=== PATIENT | female | born 2000 | race Caucasian/White ===

== ENCOUNTER 2022-12-14 10:08 | Inpatient (IN) | payer OTHER ==
[~2022-12-14] VITALS: Ht 165 cm; Wt 65.3 kg
[2022-12-14] MEDS ORDERED: METHYLERGONOVINE MALEATE 0.2 MG/ML IM PRN (11:45)
[2022-12-14] MEDS ORDERED: LIDOCAINE HCL 1% 20ML VIAL (Pyxis) INJ INFIL SCH (11:45)
[2022-12-14] MEDS ORDERED: MEPERIDINE HCL/PF 25MG/ML CPJ IM PRN (13:30)
[2022-12-14] MEDS: LACTATED RINGERS 1,000 ML IV SCH ×6 (13:49→21:49)
[2022-12-14] MEDS: MEPERIDINE HCL/PF 25MG/ML CPJ IV PRN ×6 (13:51→21:51)
[2022-12-14 14:09] LABS: BASOPHILS % 0.4 % (0.0-2.0); EOSINOPHILS % 0.2 % (0.0-5.0); HEMATOCRIT. 34.8 % (36.0-48.0); HEMOGLOBIN. 12.1 g/dL (12.0-16.0); LYMPHOCYTES % 20.7 % (20.0-50.0); MEAN CORPUSCULAR HEMOGLOBIN 29.6 pg (28.0-32.0); MEAN CORPUSCULAR VOLUME 85.2 fL (81.0-99.0); MEAN PLATELET VOLUME 10.9 fl (7.4-10.4); MONOCYTES % 6.8 % (2.0-8.0); NEUTROPHILS % 71.9 % (40.0-76.0); PLATELET 206 x1000/uL (130-400); RED BLOOD CELL COUNT 4.08 mill/uL (4.2-5.4)
[2022-12-14 14:58] LABS: HEPATITIS B SURFACE ANTIGEN NEGATIVE
[2022-12-14 15:28] LABS: CLARITY URINE CLOUDY (CLEAR); COLOR URINE YELLOW (YELLOW); KETONES URINE NEGATIVE (NEGATIVE); LEUKOCYTE ESTERASE URINE NEGATIVE (NEGATIVE); NITRITE URINE NEGATIVE (NEGATIVE); OCCULT BLOOD URINE NEGATIVE (NEGATIVE); PROTEIN URINE NEGATIVE (NEGATIVE); SPECIFIC GRAVITY URINE 1.014 (1.005-1.030)
[2022-12-14 15:44] LABS: *AMPHETAMINES SCREEN URINE NEGATIVE (NEGATIVE); *BARBITURATES SCREEN URINE NEGATIVE (NEGATIVE); *BENZODIAZEPINES SCREEN URINE NEGATIVE (NEGATIVE); *COCAINE SCREEN URINE NEGATIVE (NEGATIVE); CANNABINOID URINE SCREEN NEGATIVE (NEGATIVE); METHADONE URINE SCREEN NEGATIVE (NEGATIVE); OPIATES URINE SCREEN NEGATIVE (NEGATIVE); PHENCYCLIDINE URINE SCREEN NEGATIVE (NEGATIVE)
[2022-12-14] MEDS: OXYTOCIN 30 UNITS/500ML NS PMX 500 ML IV SCH (18:15)
[2022-12-14] MEDS ORDERED: FENTANYL CITRATE/PF 50MCG/ML 2ML VIAL ONE (21:35)
[2022-12-14] MEDS ORDERED: ROPIVACAINE HCL/PF EPIDURAL 200 ML EPI SCH (21:45)
[2022-12-14] MEDS: ONDANSETRON HCL 4MG/2ML INJ IV PRN (21:54)
[2022-12-15] MEDS: MEPERIDINE HCL/PF 25MG/ML CPJ IV PRN ×3 (03:26→06:02)
[2022-12-15] MEDS: ONDANSETRON HCL 4MG/2ML INJ IV PRN (03:27)
[2022-12-15] MEDS: LACTATED RINGERS 1,000 ML IV SCH ×2 (04:21→06:01)
[2022-12-15] MEDS ORDERED: MINERAL OIL 30ML BOTTLE TOP NR (07:30)
[2022-12-15] MEDS: OXYTOCIN 30 UNITS/500ML NS PMX 500 ML IV SCH (08:05)
[2022-12-15] MEDS ORDERED: HEMORRHOIDAL SUPP PR PRN (08:30)
[2022-12-15] MEDS ORDERED: GLYCERIN/WITCH HAZEL LEAF MEDICATED PAD TOP PRN (08:30)
[2022-12-15] MEDS ORDERED: LANOLIN OINT 7GM TUBE TOP PRN (08:30)
[2022-12-15] MEDS ORDERED: RHO(D) IMMUNE GLOBULIN 300 MCG/SYR IM PRN (08:30)
[2022-12-15] MEDS ORDERED: BENZOCAINE/LANOLIN/ALOE VERA SPRAY TOP PRN (08:30)
[2022-12-15] MEDS ORDERED: BISACODYL 10MG SUPP PR PRN (08:30)
[2022-12-15] MEDS ORDERED: IBUPROFEN 400MG TABLET PO PRN (08:30)
[2022-12-15] MEDS ORDERED: ACETAMINOPHEN WITH CODEINE 300/30MG TABLET PO PRN (08:30)
[2022-12-15] MEDS ORDERED: DIPHENHYDRAMINE 25MG CAPSULE PO PRN (08:30)
[2022-12-15] MEDS ORDERED: OXYTOCIN 30 UNITS/500ML NS PMX 500 ML IV SCH (08:30)
[2022-12-15] MEDS: PRENATAL VIT/FE FUMARATE/FA TABLET PO SCH (09:00)
[2022-12-15 10:15] VITALS: BP 140/84; PULSE 72; RESP 18; TEMP 98.8; O2SAT 97
[2022-12-15] MEDS: MAGNESIUM/ALUMINUM HYDROXIDE/SIMETHICONE 30ML UDC PO SCH ×2 (13:00→17:00)
[2022-12-15 16:00] VITALS: BP 103/52; PULSE 78; RESP 18; TEMP 98.3
[2022-12-15] MEDS: SIMETHICONE 80MG TABLET CHEW PO SCH ×2 (17:00→20:07)
[2022-12-15] MEDS: DOCUSATE SODIUM 100MG CAPSULE PO SCH (20:07)
[2022-12-15] MEDS: IBUPROFEN 800MG TABLET PO PRN (20:07)
[2022-12-15 20:31] VITALS: BP 109/58; PULSE 79; RESP 18; TEMP 98.6
[2022-12-15 21:03] VITALS: O2SAT 100
[2022-12-16 02:22] VITALS: BP 99/59; PULSE 74; RESP 18; TEMP 99.1
[2022-12-16] MEDS: IBUPROFEN 800MG TABLET PO PRN ×3 (04:15→21:47)
[2022-12-16 05:57] VITALS: BP 97/50; PULSE 96; RESP 18; TEMP 98.9
[2022-12-16 08:37] LABS: BASOPHILS % 0.2 % (0.0-2.0); EOSINOPHILS % 0.1 % (0.0-5.0); HEMATOCRIT. 23.8 % (36.0-48.0); LYMPHOCYTES % 9.1 % (20.0-50.0); MEAN CORPUSCULAR HEMOGLOBIN 28.9 pg (28.0-32.0); MEAN CORPUSCULAR VOLUME 85.4 fL (81.0-99.0); MEAN PLATELET VOLUME 10.9 fl (7.4-10.4); MONOCYTES % 4.4 % (2.0-8.0); NEUTROPHILS % 86.2 % (40.0-76.0); PLATELET 138 x1000/uL (130-400); RED BLOOD CELL COUNT 2.78 mill/uL (4.2-5.4)
[2022-12-16] MEDS: PRENATAL VIT/FE FUMARATE/FA TABLET PO SCH (09:00)
[2022-12-16 09:30] VITALS: O2SAT 98
[2022-12-16 10:00] VITALS: BP 97/44; PULSE 67; RESP 18; TEMP 98
[2022-12-16] MEDS: FERROUS SULFATE 325MG TABLET PO SCH ×3 (12:30→17:30)
[2022-12-16] MEDS: MAGNESIUM/ALUMINUM HYDROXIDE/SIMETHICONE 30ML UDC PO SCH ×2 (15:06→21:46)
[2022-12-16] MEDS: SIMETHICONE 80MG TABLET CHEW PO SCH ×2 (15:11→21:47)
[2022-12-16 16:00] VITALS: BP 97/47; PULSE 81; RESP 18; TEMP 98.3
[2022-12-16 20:00] VITALS: BP 90/58; PULSE 70; RESP 18; TEMP 98.4; O2SAT 98
[2022-12-16] MEDS: DOCUSATE SODIUM 100MG CAPSULE PO SCH (21:46)
[2022-12-17] MEDS ORDERED: IBUP-2030 PO (01:53)
[2022-12-17] MEDS ORDERED: MULT-1146 MT (01:53)
[2022-12-17] MEDS ORDERED: FERR-63 PO (01:53)
[2022-12-17] MEDS ORDERED: MEDROXYPROGESTERONE ACETATE 150MG/ML VIAL IM NR (02:00)
[2022-12-17 04:00] VITALS: BP 90/52; PULSE 76; RESP 18; TEMP 98.9
[2022-12-17] MEDS: IBUPROFEN 800MG TABLET PO PRN (04:00)
[2022-12-17] MEDS: MAGNESIUM/ALUMINUM HYDROXIDE/SIMETHICONE 30ML UDC PO SCH (07:30)
[2022-12-17] MEDS: FERROUS SULFATE 325MG TABLET PO SCH (07:30)
[2022-12-17] MEDS: SIMETHICONE 80MG TABLET CHEW PO SCH (08:00)
[2022-12-17 08:15] VITALS: BP 90/48; PULSE 61; RESP 18; TEMP 97.7; O2SAT 98
[2022-12-17] MEDS: PRENATAL VIT/FE FUMARATE/FA TABLET PO SCH (08:16)
== END 2022-12-17 13:35 | disposition home or self-care (01) | DRG 560 ==
LOC: 8 EST LDRP 10:08 → OBSVTOIN 10:08 → 8EST 12-15 19:20
PROVIDERS: ADMIT Obstetrics & Gynecology; ATTEND Obstetrics & Gynecology
PROC: 10D07Z6 Extraction of Products of Conception, Vacuum, Via Natural or Artificial Opening (ICD-10-PCS; principal; 2022-12-15)
PROC: 0KQM0ZZ Repair Perineum Muscle, Open Approach (ICD-10-PCS; 2022-12-15)
PROC: 3E0R3BZ Introduction of Anesthetic Agent into Spinal Canal, Percutaneous Approach (ICD-10-PCS; 2022-12-15)
PROC: 00HU33Z Insertion of Infusion Device into Spinal Canal, Percutaneous Approach (ICD-10-PCS; 2022-12-15)
DX: O77.0 Labor and delivery complicated by meconium in amniotic fluid (principal); Z37.0 Single live birth; O70.1 Second degree perineal laceration during delivery; O99.02 Anemia complicating childbirth; Z3A.39 39 weeks gestation of pregnancy
CPT/HCPCS: 36415; 76805; 76818; 80305; 81003; 85025; 86592; 86703; 86762; 86850; 86900; 87340; 99281; G0378; J1050; J2175; J2405; J2795; J3010; J3490; J7120; A4315; J2590